=== PATIENT | female | born 1935 | race Two or more races ===

== ENCOUNTER 2017-04-30 15:30 | Emergency (ER) | payer MEDICARE, MEDICAID ==
[~2017-04-30] VITALS: Ht 154.9 cm; Wt 70.3 kg
[2017-04-30 16:54] LABS: Basophils # (auto) 0.1 uL; Basophils % (auto) 1.2 % (0.0-2.0); Eosinophils # (auto) 0.2 uL; Eosinophils % (auto) 1.9 % (0.0-7.0); Hematocrit 41.1 % (36.0-46.0); Lymphocytes # (auto) 2.8 uL; Lymphocytes % (auto) 33.2 % (10.0-50.0); Mean Corpuscular Hemoglobin 31.9 pg (28.0-32.0); Mean Corpuscular Volume 93.7 fL (80.0-100.0); Monocytes # (auto) 1.1 uL; Monocytes % (auto) 12.4 % (0.0-12.0); Neutrophils # (auto) 4.4 uL; Neutrophils % (auto) 51.3 % (37.0-80.0); Nucleated Red Blood Cells % 0.3 %; Platelet Count (auto) 205 10^3/uL (140-450); Red Blood Cells 4.39 10^6/uL (4.0-5.20); Red Cell Distribution Width 12.7 % (11.8-14.3); White Blood Cell 8.5 10^3/uL (4.4-10.8)
[2017-04-30 17:03] LABS: Alanine Aminotransferase 24 U/L (13-56); Alkaline Phosphatase 65 U/L (45-117); Anion Gap 7 (5-15); Aspartate Aminotransferase 20 U/L (15-37); BUN/Creatinine Ratio 17.5; Bilirubin, Total 0.4 mg/dL (0.2-1.0); Blood Urea Nitrogen 18 mg/dL (7-18); Calcium 9.4 mg/dL (8.5-10.1); Carbon Dioxide 25 mmol/L (21-32); Chloride 107 mmol/L (98-107); GFR African American 66 mL/min; GFR Non-African American 55 mL/min; Glucose 108 mg/dL (74-106); Magnesium 3.1 mg/dL (1.6-2.6); Potassium 4.1 mmol/L (3.5-5.1); Sodium 139 mmol/L (136-145); Total Protein 7.9 g/dL (6.4-8.2)
[2017-05-01 01:35] LABS: INR 0.94 (0.9-1.15); Partial Thromboplastin Time 22.2 sec (22.64-33.71); Prothrombin Time 10.2 sec (9.37-12.3)
[2017-05-01 01:50] LABS: Urine Bacteria NONE SEEN /hpf (None Seen); Urine Blood TRACE /uL (Negative); Urine Mucus FEW (None Seen); Urine Specific Gravity 1.013 (1.001-1.035); Urine WBC 68 /hpf (0 - 5)
[2017-05-01] MEDS ORDERED: SODIUM CHLORIDE 0.9% 1,000 ML IV ONE (03:45)
[2017-05-01 06:12] VITALS: BP 155/75
== END 2017-05-01 07:54 | disposition home or self-care (01) ==
LOC: ER 15:44
DX: N39.0 Urinary tract infection, site not specified (principal); R53.1 Weakness; R51 Headache; I10 Essential (primary) hypertension; R06.02 Shortness of breath; D32.9 Benign neoplasm of meninges, unspecified
CPT/HCPCS: 36415; 70450; 71046; 80053; 81001; 82962; 83735; 83880; 84484; 85025; 85379; 85610; 85730; 87400; 96360; 96361; 99285; J7030; 93005